=== PATIENT | female | born 1945 | race Two or more races ===

== ENCOUNTER 2017-03-30 09:22 | Emergency (ER) | payer OTHER ==
[~2017-03-30] VITALS: Ht 167.6 cm; Wt 78.0 kg
[~2017-03-30 09:22] MED LIST: ALBUTEROL0.63 MG/3 IH; AVELOX ABC PAC400 MG PO; GILTUSS LIQUID237 ML PO; SINGULAIR10 MG PO; SYMBICORT 16010.2 GM IH
[2017-03-30] MEDS ORDERED: DILTIAZEM 24HR120 MG (09:41)
== END 2017-03-30 14:42 | disposition home or self-care (01) ==
LOC: ER 09:22
DX: J45.909 Unspecified asthma, uncomplicated (principal)

== ENCOUNTER 2017-05-12 16:46 | Emergency (ER) | payer OTHER ==
[~2017-05-12] VITALS: Ht 160 cm; Wt 78.0 kg
[~2017-05-12 16:46] MED LIST changes: +DILTIAZEM 24HR120 MG
[2017-05-12] MEDS ORDERED: COZAAR25 MG (16:55)
[2017-05-12] MEDS ORDERED: PREDNISONE20 MG (16:56)
[2017-05-12] MEDS ORDERED: CLONAZEPAM0.5 MG (16:57)
== END 2017-05-12 21:51 | disposition home or self-care (01) ==
LOC: ER 16:46
DX: J45.901 Unspecified asthma with (acute) exacerbation (principal)

== ENCOUNTER 2017-08-27 11:01 | Emergency (ER) | payer OTHER ==
[~2017-08-27] VITALS: Ht 167.6 cm; Wt 78.0 kg
[~2017-08-27 11:01] MED LIST changes: +CLONAZEPAM0.5 MG; +COZAAR25 MG; +PREDNISONE20 MG
== END 2017-08-27 17:16 | disposition home or self-care (01) ==
LOC: ER 11:01
DX: J45.998 Other asthma (principal); J11.1 Influenza due to unidentified influenza virus with other respiratory manifestations